=== PATIENT | male | born 1980 | race Caucasian/White ===

== ENCOUNTER 2016-08-20 16:32 | Emergency (ER) | payer SELFPAY ==
[~2016-08-20] VITALS: Ht 180.3 cm; Wt 81.6 kg
[~2016-08-20 16:32] MED LIST: BACTRIM DS 8001 TA1 PO; CEPHALEXIN500 M1 PO; CLEOCIN150 MG PO; HYDROCODONE BIT1 T11 PO; Motrin,Rufen800 MG PO; NAPROSYN500 MG PO; NORCO 5-325 TA1 EACH PO; ORPHENADRINE C100 M1 PO; ROBAXIN500 M1 PO
[2016-08-20] MEDS ORDERED: VICODIN 5-3001 EACH PO (18:27)
[2016-08-20] MEDS ORDERED: MEDROL DOSEPAK4 MG PO (18:27)
== END 2016-08-20 18:38 | disposition home or self-care (01) ==
LOC: ED 16:32
DX: M54.2 Cervicalgia (principal); F17.200 Nicotine dependence, unspecified, uncomplicated; Z88.6 Allergy status to analgesic agent; Z88.8 Allergy status to other drugs, medicaments and biological substances